=== PATIENT | female | born 1970 | race Caucasian/White ===

== ENCOUNTER 2022-01-01 10:05 | Emergency (ER) | payer OTHER ==
[~2022-01-01] VITALS: Ht 160 cm; Wt 70.3 kg
[2022-01-01 10:09] VITALS: BP_SYST 113
--- NOTE | 2022-01-01 10:15 | NUR ---
Patient to ER bed 8 to gown for evaluation. Side rails up. Report given to MADISON COKER.
--- NOTE | 2022-01-01 10:19 | NUR ---
Pt drove herself from home, came with c/o of burning pain in both eyes. Pt states that she has been having pain for the past week 10/10 in both eyes with tearing, discharge and blurred vision. Pt states that she thinks it started from her new makeup. She has been using water to rinse her eyes but nothing else for pain. Erythema and swelling noted in both eyes. Pt states NKA, no past medical history. Pt connected to monitor and safety precautions are in place.
--- NOTE | 2022-01-01 10:21 | NUR ---
ER at bedside examining patient.
--- NOTE | 2022-01-01 10:24 | NUR ---
Pt states she does not use contacts but does use glassess.
[2022-01-01] MEDS ORDERED: PRED50TA PO ×3 (10:28→11:53)
[2022-01-01] MEDS ORDERED: CETI10CA PO ×3 (10:28→11:53)
[2022-01-01] MEDS ORDERED: TRIA15CR3 TP ×3 (10:28→11:53)
[2022-01-01] MEDS ORDERED: predniSONE 20 MG TABLET PO ONE (10:30)
[2022-01-01] MEDS ORDERED: LORATADINE 10 MG TABLET PO ONE (10:30)
--- NOTE | 2022-01-01 10:52 | NUR ---
Patient given written and verbal discharge instructions and verbalizes understanding. ER Dr. Wolf discussed with patient the results and treatment provided. Patient in stable condition. ID arm band removed. Rx of zyrtec, prednisone, and triamcinolone acetonide given. Patient educated on pain management and to follow up with PMD. Pain Scale 3. Opportunity for questions provided and answered. Medication side effect fact sheet provided.
[2022-01-01 10:53] VITALS: BP_SYST 113
== END 2022-01-01 10:53 | disposition home or self-care (01) ==
LOC: SED 10:05
DX: L23.9 Allergic contact dermatitis, unspecified cause (principal)
CPT/HCPCS: 99283; J7512